=== PATIENT | female | born 1990 | race Two or more races ===

== ENCOUNTER 2022-10-16 22:06 | Inpatient (IN) | payer MEDICAID, OTHER ==
[~2022-10-16] VITALS: Ht 175.3 cm; Wt 66.0 kg
[2022-10-17] MEDS ORDERED: LACTATED RINGER'S 1,000 ML IV ONE
[2022-10-17] MEDS ORDERED: ONDANSETRON HCL 4 MG/2 ML VIAL IV ONE
[2022-10-17 00:21] LABS: Basophils # (auto) 0 10 ^3/uL (0-0.2); Eosinophils # (auto) 0 10 ^3/uL (0-0.8); Lymphocytes # (auto) 1.9 10 ^3/uL (0.4-5.4); Monocytes % (auto) 1.2 % (0.0-12.0)
[2022-10-17 00:23] LABS: Basophils % (auto) 0.1 % (0.0-2.0); Hematocrit 42.9 % (36.0-46.0); Hemoglobin 13.6 g/dL (12.2-16.2); Lymphocytes % (auto) 9.1 % (10.0-50.0); Mean Corpuscular Hemoglobin 27.2 pg (28.0-32.0); Mean Corpuscular Hgb Conc. 31.7 g/dL (32.0-36.0); Mean Corpuscular Volume 85.8 fL (80.0-100.0); Monocytes # (auto) 0.2 10 ^3/uL (0-1.3); Neutrophils # (auto) 18.2 10 ^3/uL (1.6-8.6); Neutrophils % (auto) 89.6 % (37.0-80.0); Nucleated Red Blood Cells % 0.1 %; White Blood Cell 20.4 10^3/uL (4.4-10.8)
[2022-10-17 00:41] LABS: Albumin 4.7 g/dL (3.4-5.0); BUN/Creatinine Ratio 16.3; Calcium 9.4 mg/dL (8.5-10.1); Potassium 4.3 mmol/L (3.5-5.1)
[2022-10-17 00:43] LABS: Bilirubin, Total 0.9 mg/dL (0.2-1.0); Total Protein 9.5 g/dL (6.4-8.2)
[2022-10-17] MEDS ORDERED: KETOROLAC TROMETH 30 MG/ML 1ML VIAL IM ONE (04:30)
[2022-10-17] MEDS ORDERED: LORazepam 2MG/ML-1ML VIAL IV ONE ×2 (04:30)
[2022-10-17] MEDS ORDERED: LORazepam 2MG/ML-1ML VIAL IV PRN (05:45)
[2022-10-17] MEDS ORDERED: ONDANSETRON HCL 4 MG/2 ML VIAL IV PRN (05:45)
[2022-10-17] MEDS ORDERED: MORPHINE SULFATE INJ 2 MG/ml SYRG IV PRN (05:45)
[2022-10-17] MEDS ORDERED: cefTRIAXone 1GM/50ML D5W 50 ML IV ONE (05:45)
[2022-10-17] MEDS: LACTATED RINGER'S 1,000 ML IV SCH ×2 (05:45→09:35)
[2022-10-17] MEDS ORDERED: DOCUSATE SOD 100 MG CAP PO PRN (05:45)
[2022-10-17] MEDS ORDERED: NITROGLYCERIN 0.4 MG SL TAB SL PRN (05:45)
[2022-10-17] MEDS ORDERED: ACETAMINOPHEN 325 MG TAB PO PRN (05:45)
[2022-10-17] MEDS ORDERED: HYDROcodone-ACET 5/325MG TAB PO PRN (05:45)
[2022-10-17 06:57] LABS: Basophils # (auto) 0 10 ^3/uL (0-0.2); Basophils % (auto) 0.1 % (0.0-2.0); Eosinophils # (auto) 0 10 ^3/uL (0-0.8)
[2022-10-17 07:00] LABS: Hematocrit 36.1 % (36.0-46.0); Hemoglobin 12.1 g/dL (12.2-16.2); Lymphocytes # (auto) 2.4 10 ^3/uL (0.4-5.4); Lymphocytes % (auto) 16.8 % (10.0-50.0); Mean Corpuscular Hgb Conc. 33.4 g/dL (32.0-36.0); Mean Corpuscular Volume 80.7 fL (80.0-100.0); Monocytes # (auto) 0.8 10 ^3/uL (0-1.3); Monocytes % (auto) 5.7 % (0.0-12.0); Neutrophils # (auto) 11.1 10 ^3/uL (1.6-8.6); Neutrophils % (auto) 77.4 % (37.0-80.0); Nucleated Red Blood Cells % 0.1 %; Red Blood Cells 4.48 10^6/uL (4.0-5.20); Red Cell Distribution Width 14.7 % (11.8-14.3); White Blood Cell 14.4 10^3/uL (4.4-10.8)
[2022-10-17 07:44] LABS: Albumin 4.3 g/dL (3.4-5.0); BUN/Creatinine Ratio 18.4; Bilirubin, Total 1.1 mg/dL (0.2-1.0); Calcium 9.3 mg/dL (8.5-10.1); Potassium 5.1 mmol/L (3.5-5.1)
[2022-10-17] MEDS ORDERED: MULTIPLE VITAMIN TAB PO SCH (10:00)
[2022-10-17] MEDS ORDERED: THIAMINE HCL 100 MG TAB PO SCH (10:00)
[2022-10-17] MEDS ORDERED: ENOXAPARIN SOD 40 MG/0.4 ML SYRINGE SC SCH (10:00)
[2022-10-17] MEDS ORDERED: FOLIC ACID 1 MG TAB PO SCH (10:00)
[2022-10-17] MEDS ORDERED: LACTATED RINGER'S 1,000 ML IV SCH (11:30)
[2022-10-17] MEDS ORDERED: chlordiazePOXIDE HCL 25 MG CAP PO SCH (11:30)
[2022-10-17 12:41] VITALS: BP 118/67
[2022-10-17] MEDS ORDERED: cefTRIAXone 1GM/50ML D5W 50 ML IV SCH (21:00)
[2022-10-18] MEDS ORDERED: chlordiazePOXIDE HCL 25 MG CAP PO SCH (10:00)
[2022-10-19] MEDS ORDERED: chlordiazePOXIDE HCL 25 MG CAP PO SCH (10:00)
[2022-10-20] MEDS ORDERED: chlordiazePOXIDE HCL 25 MG CAP PO SCH (07:00)
== END 2022-10-17 15:06 | disposition left against medical advice (07) | DRG 720 ==
LOC: ER 22:06 → EDBD 22:06 → TELE 10-17 05:38 → EDBD 10-17 05:38 → TELE 10-17 15:21
PROVIDERS: ADMIT Nurse Practitioner Family; ATTEND Nurse Practitioner Family
DX: A41.9 Sepsis, unspecified organism (principal); G92.9 Unspecified toxic encephalopathy; F10.131 Alcohol abuse with withdrawal delirium; E86.0 Dehydration; Y90.6 Blood alcohol level of 120-199 mg/100 ml; F41.9 Anxiety disorder, unspecified; Z71.41 Alcohol abuse counseling and surveillance of alcoholic; Z53.29 Procedure and treatment not carried out because of patient's decision for other reasons; Z20.822 Contact with and (suspected) exposure to COVID-19
CPT/HCPCS: 36415; 80053; 80320; 83690; 84484; 84702; 85025; 87040; 87426; 96361; 96374; 96375; G0378; J0696; J1885; J2405